=== PATIENT | male | born 1955 | race Caucasian/White ===

== ENCOUNTER 2016-07-17 23:50 | Emergency (ER) | payer BC ==
[2016-07-18] MEDS ORDERED: Sodium Chloride 0.9% 1,000 ML PRIMARY IV ONE (00:22)
[2016-07-18] MEDS ORDERED: ONDANSETRON 4 MG/2 ML VIAL IVP ONE (00:23)
[2016-07-18] MEDS ORDERED: MORPHINE SULFATE 4 MG/1 ML IVP ONE (00:23)
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
[2016-07-18 01:45] VITALS: TEMP 98
[2016-07-18 02:03] LABS: BASOPHILS # (AUTO) 0.05 10*3/UL; BASOPHILS % (AUTO) 0.4 % (0-1); EOSINOPHILS % (AUTO) 1.6 % (0-8); HEMATOCRIT 40.2 % (42.0-52.0); HEMOGLOBIN 13.8 g/dL (14.0-18.0); LYMPHOCYTES # (AUTO) 2.07 10*3/uL; MEAN CORPUSCULAR HEMOGLOBIN 28.2 PG (27-31); MEAN CORPUSCULAR HGB CONC 34.3 g/dL (33-37); MEAN CORPUSCULAR VOLUME 82.2 FL (80-90); MEAN PLATELET VOLUME 9.9 FL (7.4-12.2); MONOCYTES % (AUTO) 8.8 % (5-15); NEUTROPHILS # (AUTO) 9.04 10*3/UL; NEUTROPHILS % (AUTO) 72.2 % (50-80); RED BLOOD COUNT 4.89 10^6/uL (4.70-6.10)
[2016-07-18 02:07] LABS: PLATELET MORPHOLOGY COMMENT NORMAL MORPHOLOGY (NORM); WBC MORPHOLOGY COMMENT NORMAL MORPHOLOGY (NORM)
[2016-07-18 02:08] LABS: RBC MORPHOLOGY COMMENT NORMAL MORPHOLOGY (NORM)
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
[2016-07-18 02:31] LABS: BLOOD UREA NITROGEN 26 mg/dL (7-22); BUN/CREATININE RATIO 23.63 (6-20); CALCIUM 8.9 mg/dL (8.7-10.7); EST GLOMERULAR FILTRATION > 60 (>60 ml/min/1.73m(2)); MAGNESIUM 1.6 mg/dL (1.6-2.4); SERUM ALBUMIN 4.1 g/dL (3.5-4.8)
[2016-07-18 05:05] VITALS: RESP 18
== END 2016-07-18 03:18 | disposition home or self-care (01) ==
LOC: ER 23:50
DX: M54.5 Low back pain (principal); M54.89 Other dorsalgia; V48.5XXA Car driver injured in noncollision transport accident in traffic accident, initial encounter
CPT/HCPCS: 72072; 72110; 80053; 83735; 85025; 96374; 96375; 99283 ×2; J2360; J2270; J2405